=== PATIENT | male | born 1935 | race African-American/Black ===

== ENCOUNTER 2017-11-02 09:52 | Emergency (ER) | payer MEDICARE, MEDICAID ==
[~2017-11-02] VITALS: Ht 177.8 cm; Wt 100.0 kg
[~2017-11-02 09:52] MED LIST: UNK MEDS
[2017-11-02 11:06] LABS: BASOPHILS % 0.2 % (0.0-2.0); EOSINOPHILS % 2.8 % (0.0-5.0); HEMATOCRIT. 42.1 % (42.0-52.0); LYMPHOCYTES % 29.8 % (20.0-50.0); MEAN CORPUSCULAR HEMOGLOBIN 32.7 pg (28.0-32.0); MEAN CORPUSCULAR VOLUME 91.5 fL (80.0-94.0); MEAN PLATELET VOLUME 8.4 fl (7.4-10.4); MONOCYTES % 9.8 % (2.0-8.0); NEUTROPHILS % 57.4 % (40.0-76.0); PLATELET 202 x1000/uL (130-400); RED CELL DISTRIBUTION WIDTH 13.9 % (11.6-14.6)
[2017-11-02 11:13] LABS: INR 1.1
[2017-11-02 11:14] LABS: CHLORIDE 100 mEq/L (98-107)
[2017-11-02] MEDS ORDERED: SODIUM CHLORIDE 0.9% 1,000 ML IV ONE (11:56)
[2017-11-02] MEDS ORDERED: PANTOPRAZOLE SODIUM 40 MG/VIAL IV ONE (12:00)
[2017-11-02 14:20] VITALS: BP 146/92
== END 2017-11-02 14:30 | disposition left against medical advice (07) ==
LOC: ER 10:13 → EDBEDREQ 13:04 → ER 14:30 → CANBEDREQ 16:22
DX: K92.1 Melena (principal)
CPT/HCPCS: 36415; 71045; 80053; 85025; 85610; 86850; 86900; 86901; 96361; 96374; 99285; C9113; J7030